=== PATIENT | male | born 1945 | race Two or more races ===

== ENCOUNTER 2022-10-19 18:20 | Emergency (ER) | payer MEDICARE ==
[~2022-10-19] VITALS: Ht 167.6 cm; Wt 81.6 kg
--- NOTE | 2022-10-19 18:25 | NUR ---
BIB [facility] from home. Pt states he took NTG SLx3 prior to EMS arrival and arrives pain free. Per EMS pt's SBP was 95 on scene. Pt states "I feel normal now and I want to go home".
[2022-10-19] MEDS ORDERED: NITROGLYCERIN OINT 1 GM PACKET TP ONE (18:30)
[2022-10-19] MEDS ORDERED: ASPIRIN 81 MG TAB.CHEW PO ONE (18:30)
[2022-10-19] MEDS ORDERED: IV NORMAL SALINE 500 ML BAG IV ONE (18:30)
--- NOTE | 2022-10-19 18:49 | NUR ---
BP 107/56 pt IV removed Pt signed AMA form ER MD educated pt on Chest pain with risks pt verbalized understanding states he is back to normal and made a mistake with taking too much nitro before lifting heavy furniture pt stable walked out.
--- NOTE | 2022-10-19 18:50 | NUR ---
meds not given
[2022-10-19 18:51] VITALS: BP 107/56
== END 2022-10-19 18:52 | disposition left against medical advice (07) ==
LOC: ER 18:20
DX: I20.8 Other forms of angina pectoris (principal); I10 Essential (primary) hypertension; I25.2 Old myocardial infarction; F17.210 Nicotine dependence, cigarettes, uncomplicated; E11.9 Type 2 diabetes mellitus without complications; E78.00 Pure hypercholesterolemia, unspecified
CPT/HCPCS: A4663